=== PATIENT | female | born 1980 | race Caucasian/White ===

== ENCOUNTER → 2018-02-12 | Outpatient (CLI) | payer OTHER ==
[2018-02-14 17:08] LABS: CHLAMYDIA TRACHOMATIS, NAA Negative (Negative); NEISSERIA GONORRHOEAE, NAA Negative (Negative)
== END | disposition home or self-care (01) ==
LOC: LAB SHORT 15:16 → LAB 15:16
PROVIDERS: Advanced Practice Midwife
DX: Z11.3 Encounter for screening for infections with a predominantly sexual mode of transmission (principal); N76.0 Acute vaginitis
CPT/HCPCS: 87491; 87591

== ENCOUNTER → 2018-07-30 | Outpatient (CLI) | payer OTHER ==
[~2018-07-30] MED LIST: DOCU100 PO; HUMULIN N100 UNIT/1 SC; IBUP800 PO; PRENATAL + DHA1 EAC1 PO; Percocet 5-3251 EACH PO
== END | disposition home or self-care (01) ==
LOC: LAB SHORT 11:21 → LAB 11:21
DX: Z34.80 Encounter for supervision of other normal pregnancy, unspecified trimester (principal)
CPT/HCPCS: 87081; 87653

== ENCOUNTER 2018-08-11 19:50 | Inpatient (IN) | payer OTHER ==
[~2018-08-11] VITALS: Ht 167.6 cm; Wt 0.0 kg
[2018-08-11] MEDS ORDERED: PRENATAL + DHA1 EAC1 PO (20:34)
[2018-08-11] MEDS ORDERED: HUMULIN N100 UNIT/1 SC (20:37)
[2018-08-11 20:40] LABS: BASOPHILS ABSOLUTE AUTO 0.02 K/mm3 (0.00-0.23); BASOPHILS PERCENT AUTO 0 % (0-2); EOSINOPHILS ABSOLUTE AUTO 0.12 K/mm3 (0.00-0.68); EOSINOPHILS PERCENT AUTO 1 % (0-6); Hematocrit 34.9 % (33.0-51.0); Hemoglobin 11.2 g/dL (11.5-16.0); IMMATURE GRAN ABSOLUTE AUTO 0.04 K/mm3 (0.00-0.10); IMMATURE GRAN PERCENT AUTO 1 % (0-1); LYMPHOCYTES ABSOLUTE AUTO 2.02 K/mm3 (0.84-5.20); LYMPHOCYTES PERCENT AUTO 23 % (21-46); MONOCYTES PERCENT AUTO 7 % (4-13); Mean Corpuscular HGB 31.8 pg (26.0-34.0); Mean Corpuscular HGB Conc 32.1 g/dL (31.5-36.5); Mean Corpuscular Volume 99 fL (80-100); Mean Platelet Volume 9.2 fL (9.1-12.4); NEUTROPHILS ABSOLUTE AUTO 5.94 K/mm3 (1.96-9.15); NEUTROPHILS PERCENT AUTO 68 % (41-73); Platelet Count 241 K/mm3 (150-400); RDW Standard Deviation 50.5 fL (35.1-46.3); Red Blood Cell Count 3.52 M/mm3 (3.80-5.20); White Blood Cell Count 8.74 K/mm3 (4.00-11.30)
--- NOTE | 2018-08-13 09:50 | NUR ---
CONSULT. BABY IS LESS THAN 12 HOURS OLD, VERY SLEEPY, AND HAVING SOME LOW BLOOD SUGARS AND MOM IS DIABETIC. SHIELD USED WITH LAST FEEDING AND BABY DID SUCKLE SOME. HAS HAD FORMULA SUPPLEMENT FOR LOW BLOOD SUGARS. BABY IS CURRENTLY SOUND ASLEEP IN MOMS ARMS. PLAN IS FOR MOM TO PUMP Q2-3 HOURS FOR 10-15 MINUTES TO STIMULATE MILK SUPPLY BABY IS NOT SUCKING VIGOROUSLY YET. SHE HAS A HISTORY OF ABUNDANT MILK SUPPLY. EBM WILL BE FED BACK TO BABY VIA SYRINGE/FEEDING TUBE INTO SHIELD WHILE BABY IS BF, GOAL IS 10CC/FEEDING IN THE FIRST 24 HOURS, AND INCREASE TO 20CC IN THE SECOND 24 HOURS. WILL TRY AND EVALUATE BABY'S ABILITY TO SUCK WHEN SHE IS MORE AWAKE. QUESTIONS ANSWERED.
--- NOTE | 2018-08-13 19:53 | NUR ---
fresh ice water and cranberry fredy given.
[2018-08-14 05:53] LABS: Hemoglobin 11.7 g/dL (11.5-16.0); Mean Corpuscular HGB 31.8 pg (26.0-34.0); Mean Corpuscular HGB Conc 31.6 g/dL (31.5-36.5); Mean Corpuscular Volume 101 fL (80-100); Mean Platelet Volume 9.1 fL (9.1-12.4); Platelet Count 213 K/mm3 (150-400); RDW Coefficient Variation 14.4 % (11.7-14.2); RDW Standard Deviation 52.7 fL (35.1-46.3); Red Blood Cell Count 3.68 M/mm3 (3.80-5.20); White Blood Cell Count 7.23 K/mm3 (4.00-11.30)
--- NOTE | 2018-08-14 08:30 | NUR ---
PT UP MOVING IN ROOM, DESIRES TO DC HOME TODAY IF ABLE. NB JAUNDICED, DISCUSSED BOARDER STATUS IF NB NEEDS TO STAY. GOOD WITH THAT PLAN, VERY FRIENDLY, LOVING TOWARDS NB. HX OF PP DEPRESSION, BUT SO FAR FEELING FINE THUS FAR.
--- NOTE | 2018-08-14 09:52 | NUR ---
PT UP TO SHOWER.
[2018-08-14] MEDS ORDERED: Percocet 5-3251 EACH PO (18:45)
[2018-08-14] MEDS ORDERED: DOCU100 PO (18:46)
[2018-08-14] MEDS ORDERED: IBUP800 PO (18:46)
--- NOTE | 2018-08-14 19:12 | NUR ---
REPORT TO ONCOMING SHIFT, NO ACUTE CHANGES.
--- NOTE | 2018-08-14 21:04 | NUR ---
PT EDUCATION COMPLETE BY PREVIOUS SHIFT RN. PT DENIES ANY QUESTIONS OR CONCERNS AT THIS TIME. RX GIVEN TO PT AND FILLED. PPFU MADE AND PT AWARE OF APPT DATE. PT TO ROOM IN WITH ANDREINA.
== END 2018-08-14 21:18 | disposition home or self-care (01) | DRG 807 ==
LOC: BC 19:50
PROVIDERS: ADMIT Advanced Practice Midwife
PROC: 10E0XZZ Delivery of Products of Conception, External Approach (ICD-10-PCS; principal; 2018-08-13)
PROC: 3E033VJ Introduction of Other Hormone into Peripheral Vein, Percutaneous Approach (ICD-10-PCS; 2018-08-13)
PROC: 10907ZC Drainage of Amniotic Fluid, Therapeutic from Products of Conception, Via Natural or Artificial Opening (ICD-10-PCS; 2018-08-13)
PROC: 3E0R3BZ Introduction of Anesthetic Agent into Spinal Canal, Percutaneous Approach (ICD-10-PCS; 2018-08-13)
PROC: 10H07YZ Insertion of Other Device into Products of Conception, Via Natural or Artificial Opening (ICD-10-PCS; 2018-08-13)
DX: O24.424 Gestational diabetes mellitus in childbirth, insulin controlled (principal); Z37.0 Single live birth; O36.63X0 Maternal care for excessive fetal growth, third trimester, not applicable or unspecified; Z3A.38 38 weeks gestation of pregnancy; O99.824 Streptococcus B carrier state complicating childbirth; Z87.891 Personal history of nicotine dependence; Z88.1 Allergy status to other antibiotic agents; Z88.0 Allergy status to penicillin; Z88.2 Allergy status to sulfonamides; Z88.8 Allergy status to other drugs, medicaments and biological substances
CPT/HCPCS: 36415; 51702; 82947; 85025; 85027; 90471; J0690; J1815; J1885; J2001; J2210; J2370; J2405; J2590; J3010; J7120

== ENCOUNTER → 2018-09-27 | Outpatient (CLI) | payer OTHER ==
[2018-09-27 14:19] LABS: Candida species (DNA Probe) Negative (NEGATIVE); G. vaginalis (DNA Probe) Negative (NEGATIVE); T. vaginalis (DNA Probe) Negative (NEGATIVE)
== END | disposition home or self-care (01) ==
LOC: LAB SHORT 12:45 → LAB 12:45
PROVIDERS: Advanced Practice Midwife
DX: N76.0 Acute vaginitis (principal)
CPT/HCPCS: 87480; 87510; 87660

== ENCOUNTER 2018-10-24 12:42 | Day surgery (SDC) | payer OTHER ==
[~2018-10-24] VITALS: Ht 167.6 cm; Wt 89.0 kg
[~2018-10-24 12:42] MED LIST changes: +FOLI1 PO; +METF500C PO; +ORTHO MICRONO0.35 MG PO; +VITAMIN D31000 UNIT PO; +VITAMIN D5000 UNIT PO
[2018-10-24] MEDS ORDERED: Verotin-Gr Cap1 EACH PO (13:36)
--- NOTE | 2018-10-24 15:26 | NUR ---
10/24/18 1526 Trina Mireles V PT RESTING IN RECLINER, CALL LIGHT WITHIN REACH, PT IS HYPOTENIVE NUT ASYMPTOMATIC, 200ML NS GIVEN FOR BP SUPPORT. PT REPORTS CRAMPING PAIN IN ABOMEN, 01/08, FOR WHICH SHE HAS BEEN MEDICATED FOR PER ORDER. WARM BLANKETS GIVEN FOR COMFORT. PT TOLERATING PO NURISHMENT.
== END 2018-10-24 16:22 | disposition home or self-care (01) ==
LOC: ORSCSDS 12:42
PROVIDERS: Obstetrics & Gynecology
PROC: 0UT74ZZ Resection of Bilateral Fallopian Tubes, Percutaneous Endoscopic Approach (ICD-10-PCS; principal; 2018-10-24 14:00)
DX: Z30.2 Encounter for sterilization (principal)
CPT/HCPCS: 88302; J1100; J1885; J2250; J2405; J2704; J2710; J3010; J7120

== ENCOUNTER 2023-06-04 17:11 | Emergency (ER) | payer OTHER ==
[~2023-06-04] VITALS: Ht 165.1 cm; Wt 106.6 kg
[~2023-06-04 17:11] MED LIST changes: +Verotin-Gr Cap1 EACH PO
[2023-06-04 17:23] VITALS: BP 129/89
== END 2023-06-04 19:00 | disposition home or self-care (01) ==
LOC: ER 17:11
DX: S93.402A Sprain of unspecified ligament of left ankle, initial encounter (principal); Z87.891 Personal history of nicotine dependence; Z79.899 Other long term (current) drug therapy; Z88.0 Allergy status to penicillin; Z88.1 Allergy status to other antibiotic agents; Z88.2 Allergy status to sulfonamides; W10.9XXA Fall (on) (from) unspecified stairs and steps, initial encounter
CPT/HCPCS: 73610; 96372; 99283-25; J1885